=== PATIENT | female | born 1990 | race Caucasian/White ===

== ENCOUNTER 2019-04-27 22:08 | Outpatient (CLI) | payer OTHER ==
--- NOTE | 2019-04-28 00:28 | Ultrasound Report ---
Reason: TEST POSITIVE,ENCOUNTER FOR REMOVAL OF I Procedure Date: 04/27/2019 Accession Number: [id number] / [id number] Procedure: US - OB First Trimester CPT Code: FULL RESULT: EXAM: FIRST TRIMESTER OBSTETRIC ULTRASOUND (Less than 11 weeks) EXAM DATE: 04/27/2019 10:16 PM. CLINICAL HISTORY: TEST POSITIVE,ENCOUNTER FOR REMOVAL OF IUD. LMP: 03/17/2019. COMPARISONS: None. TECHNIQUE: Transabdominal and transvaginal ultrasound examination with static image documentation. CLINICAL DATES: EGA 5 weeks 6 days with DANTE 12/22/2019 based on LMP. ASSESSMENT: Gestational Sac: Irregular collection at the fundal endometrium. Mean gestational sac diameter: 18.4 mm = 6 weeks 5 days. Embryo: Not seen. Cardiac activity: Not seen. Yolk sac: Possible irregular yolk sac measuring 5.6 mm. Amniotic fluid: Not accurately assessed at this gestational age. Early placenta: Not visible at this gestational age. Other: No perigestational fluid collection demonstrated. MATERNAL STRUCTURES: Uterus: Anteverted/Retroverted. Unremarkable. Cervix: Closed. Right Ovary/Adnexa: The ovary measures 2.1 x 2.4 x 1.7 cm, volume 4.5 cc. Paraovarian cyst measuring 1.2 x 1.3 x 1.2 cm. Left Ovary/Adnexa: The ovary measures 4.3 x 3.3 x 3.5 cm, volume 25.7 cc. Cyst measuring 2.7 x 3.2 x 3.3 cm. Free Fluid: Small to moderate amount. Other: None. IMPRESSION: 1. Irregular fluid collection at the uterine fundus measuring 18.4 mm mean diameter. If this represents a gestational sac, the size corresponds with 6 weeks 5 days gestation. 2. Within this collection is a possible irregular yolk sac measuring 5.6 mm. No embryo or cardiac activity seen. 3. Findings could represent early intrauterine gestation, incomplete , or occult ectopic. Recommend correlation with quantitative serum beta-hCG level and sonographic follow-up. 4. Prominent left ovary measuring 26 cc with cyst measuring 3 cm. 5. Small to moderate amount of free fluid. RADIA
== END 2019-04-27 22:09 | disposition home or self-care (01) ==
LOC: DI 22:08
PROVIDERS: ATTEND Nurse Practitioner Obstetrics & Gynecology
DX: Z32.01 Encounter for pregnancy test, result positive (principal); Z30.432 Encounter for removal of intrauterine contraceptive device
CPT/HCPCS: 76801; 76817

== ENCOUNTER 2019-05-03 19:09 | Outpatient (CLI) | payer OTHER ==
--- NOTE | 2019-05-04 14:30 | Ultrasound Report ---
Reason: TEST POSITIVE,ENCOUNTER FOR REMOVAL OF I Procedure Date: 05/03/2019 Accession Number: [id number] / [id number] Procedure: US - OB First Trimester CPT Code: FULL RESULT: EXAM: FIRST TRIMESTER OBSTETRIC ULTRASOUND (Less than 11 weeks) EXAM DATE: 05/03/2019 07:23 PM. CLINICAL HISTORY: Positive test, encounter for removal of intrauterine device. LMP: 03/17/2019. COMPARISONS: OB FIRST TRIMESTER 04/27/2019 10:16 PM. TECHNIQUE: Transabdominal and transvaginal ultrasound examination with static image documentation. CLINICAL DATES: EGA 6 weeks 5 days with DANTE 12/22/2019 based on LMP. ASSESSMENT: Gestational Sac: Single intrauterine. Mean gestational sac diameter: 8 mm = 5 weeks 4 days. Embryo: Not seen. Cardiac activity: Not seen. Yolk sac: 2 mm. Amniotic fluid: Not accurately assessed at this gestational age. Early placenta: Not visible at this gestational age. Other: There is a complex heterogeneously contoured fluid collection within the endometrium, 3.4 x 1.6 x 3.5 cm. MATERNAL STRUCTURES: Uterus: Retroverted. Unremarkable. Cervix: Closed. Right Ovary/Adnexa: The ovary measures 2.4 x 1.6 x 1.7 cm, volume 3.3 cc. A paraovarian cyst measures 1.0 x 1.1 x 1.4 cm on today's exam.. Left Ovary/Adnexa: The ovary measures 4.7 x 3.9 x 4.2 cm, volume 41 cc. A cyst measuring 3.4 x 3.9 x 3.5 cm is noted. Free Fluid: Redemonstration of small to moderate quantity of free fluid. Other: None. IMPRESSION: 1. Absence of embryo greater than 6 weeks after last menstrual period is suspicious for but not diagnostic of failure. The early intrauterine gestational sac with size corresponding to a gestational age of 5 weeks 4 days is identified. Recommend follow-up ultrasound in 7-10 days to assess viability. 2. Persistent heterogeneous perigestational fluid collection as described. 3. Persistent small to moderate free fluid in the pelvis. 4. Adnexal cystic structures as noted. RADIA
== END 2019-05-03 19:10 | disposition home or self-care (01) ==
LOC: DI 19:09
PROVIDERS: ATTEND Nurse Practitioner Obstetrics & Gynecology
DX: Z32.01 Encounter for pregnancy test, result positive (principal); Z30.432 Encounter for removal of intrauterine contraceptive device
CPT/HCPCS: 76801; 76817

== ENCOUNTER 2019-05-05 11:09 | Outpatient (CLI) | payer OTHER | END 2019-05-05 11:10 | disposition home or self-care (01) | LOC: LAB 11:09 | PROVIDERS: ATTEND Nurse Practitioner Obstetrics & Gynecology | DX: O20.0 Threatened abortion (principal); Z32.01 Encounter for pregnancy test, result positive | CPT/HCPCS: 36415; 84702 ==

== ENCOUNTER 2019-05-07 15:16 | Outpatient (CLI) | payer OTHER | END 2019-05-07 15:17 | disposition home or self-care (01) | LOC: LAB 15:16 | PROVIDERS: ATTEND Nurse Practitioner Obstetrics & Gynecology | DX: O20.0 Threatened abortion (principal); Z32.01 Encounter for pregnancy test, result positive | CPT/HCPCS: 36415; 84702 ==

== ENCOUNTER 2019-05-12 21:27 | Outpatient (CLI) | payer OTHER ==
--- NOTE | 2019-05-13 11:45 | Ultrasound Report ---
Reason: THREATENED Procedure Date: 05/12/2019 Accession Number: [id number] / [id number] Procedure: US - OB First Trimester CPT Code: FULL RESULT: EXAM: FIRST TRIMESTER OBSTETRIC ULTRASOUND (Less than 11 weeks) EXAM DATE: 05/12/2019 10:45 PM. CLINICAL HISTORY: Threatened . LMP: 03/17/2019. COMPARISONS: OB FIRST TRIMESTER 05/03/2019 7:23 PM. TECHNIQUE: Transabdominal and transvaginal ultrasound examination with static image documentation. CLINICAL DATES: EGA 8 weeks 0 days with DANTE 12/22/2019 based on LMP. ASSESSMENT: Gestational Sac: Single intrauterine. Embryo: CRL (crown-rump length) 6.7 mm = 6 weeks 4 days with an DANTE of 01/01/2020. Cardiac activity: 125 beats per minute. Yolk sac: 2.5 mm. Amniotic fluid: Not accurately assessed at this gestational age. Early placenta: Not visible at this gestational age. Other: Large perigestational hemorrhage measuring 2.2 x 1.2 x 3.8 cm. Previously measuring 3.4 x 1.6 x 3.5 cm. MATERNAL STRUCTURES: Uterus: Anteverted. Unremarkable. Cervix: Closed. Right Ovary/Adnexa: The ovary measures 3.3 x 1.4 x 1.6 cm, volume 3.9 cc. Hypoechoic 1.1 x 1.6 x 1 cm cystic structure adjacent to the right ovary. No wall irregularities, mural nodules or thickened septations.. Left Ovary/Adnexa: The ovary measures 5.2 x 4.1 x 4.2 cm, volume 46.8 cc. Anechoic left ovarian 3.4 x 3.5 x 3.6 cm cyst. No wall irregularities, mural nodules or thickened septations. Free Fluid: Small volume. Other: None. IMPRESSION: 1. Single viable intrauterine at EGA 6 weeks 4 days with DANTE 01/01/2020 based on crown-rump length, which is discordant with clinical dates. 2. Assigned dating is DANTE 01/01/2020 based on current ultrasound. 3. Large perigestational hemorrhage currently measures 2.2 x 1.2 x 3.8 cm compared with the previous 3.4 x 1.6 x 3.5 cm. 4. Large anechoic simple 3.6 cm left ovarian cyst. 1.6 cm right paraovarian cyst without concerning features. Otherwise, both ovaries and adnexa are normal. 5. Small volume free fluid noted. RADIA
== END 2019-05-12 21:28 | disposition home or self-care (01) ==
LOC: DI 21:27
PROVIDERS: ATTEND Nurse Practitioner Obstetrics & Gynecology
DX: O20.0 Threatened abortion (principal); O34.81 Maternal care for other abnormalities of pelvic organs, first trimester; N83.201 Unspecified ovarian cyst, right side; N83.292 Other ovarian cyst, left side; Z3A.01 Less than 8 weeks gestation of pregnancy
CPT/HCPCS: 76801; 76817

== ENCOUNTER 2019-06-03 12:06 | Outpatient (CLI) | payer OTHER ==
[2019-06-03 12:42] LABS: BASOPHILS % (AUTO) 0.4 %; EOSINOPHILS # (AUTO) 0.2 10^3/uL (0.0-0.7); EOSINOPHILS % (AUTO) 1.9 %; HGB - HEMOGLOBIN 11.2 g/dL (12.0-16.0); LYMPHOCYTES # (AUTO) 1.9 10^3/uL (1.5-3.5); LYMPHOCYTES % (AUTO) 22.7 %; MEAN CORPUSCULAR HEMOGLOBIN 31.7 pg (27.0-31.0); MEAN CORPUSCULAR HGB CONC 34.9 g/dL (32.0-36.0); MEAN CORPUSCULAR VOLUME 90.9 fL (81.0-99.0); MONOCYTES # (AUTO) 0.5 10^3/uL (0.0-1.0); NEUTROPHILS # (AUTO) 5.8 10^3/uL (1.5-6.6); NEUTROPHILS % (AUTO) 68.6 %; PLT - PLATELET COUNT 242 10^3/uL (130-450); RED BLOOD COUNT 3.53 10^6/uL (4.20-5.40); RED CELL DISTRIBUTION WIDTH 12.7 % (12.0-15.0); WHITE BLOOD COUNT 8.5 x10^3/uL (4.8-10.8)
[2019-06-04 14:11] LABS: HEPATITIS B SURFACE ANTIGEN NON-REACTIVE (NON-REACTIVE)
[2019-06-04 15:22] LABS: HEPATITIS C ANTIBODY NON-REACTIVE (NON-REACTIVE)
[2019-06-06 14:52] LABS: HIV AG/AB 4TH GEN NON-REACTIVE (NON-REACTIVE)
== END 2019-06-03 12:07 | disposition home or self-care (01) ==
LOC: LAB 12:06
PROVIDERS: ATTEND Nurse Practitioner Obstetrics & Gynecology
DX: Z36.89 Encounter for other specified antenatal screening (principal)
CPT/HCPCS: 36415; 81599; 85025; 86592; 86762; 86803; 86850; 86900; 86901; 87340; 87389

== ENCOUNTER 2019-06-03 12:09 | Outpatient (CLI) | payer OTHER ==
[2019-06-03 14:39] LABS: MUDS CUTOFF CONCENTRATIONS CUTOFF CONC BELOW:
[2019-06-03 14:46] LABS: BILIRUBIN,URINE NEGATIVE (NEGATIVE); GLUCOSE, URINE (UA) NEGATIVE (NEGATIVE); KETONES,URINE (UA) NEGATIVE (NEGATIVE); LEUKOCYTE ESTERASE, URINE TRACE (NEGATIVE); NITRITE,URINE NEGATIVE (NEGATIVE); OCCULT BLOOD,URINE NEGATIVE (NEGATIVE); PROTEIN,URINE NEGATIVE (NEGATIVE); UROBILINOGEN,URINE 0.2 (NORMAL) E.U./dL (NORMAL)
[2019-06-03 15:03] LABS: AMPHETAMINE SCREEN,URINE NEGATIVE (NEGATIVE); BENZODIAZEPINES SCREEN, URINE NEGATIVE (NEGATIVE); COCAINE SCREEN URINE NEGATIVE (NEGATIVE); METHADONE SCREEN, URINE NEGATIVE (NEGATIVE); METHAMPHETAMINES SCREEN, URINE NEGATIVE (NEGATIVE); OPIATE SCREEN, URINE NEGATIVE (NEGATIVE); OXYCODONE SCREEN, URINE NEGATIVE (NEGATIVE); PROPOXYPHENE SCREEN, URINE NEGATIVE (NEGATIVE); TRICYCLIC ANTIDEPRESSANT,URINE NEGATIVE (NEGATIVE)
[2019-06-03 15:08] LABS: CLARITY,URINE CLEAR (CLEAR); RBC,URINE 0-5 /HPF (0-5); WBC CLUMPS,URINE PRESENT
[2019-06-03 15:09] LABS: BACTERIA,URINE Many /HPF (None Seen); SQUAMOUS EPITHELIAL CELL,UR MOD Squamous (<= Few)
[2019-06-03 19:04] LABS: TRICHOMONAS VAGINALIS DNA NEGATIVE (NEGATIVE)
== END 2019-06-03 12:10 | disposition home or self-care (01) ==
LOC: LAB.R 12:09
PROVIDERS: ATTEND Nurse Practitioner Obstetrics & Gynecology
DX: Z36.89 Encounter for other specified antenatal screening (principal); Z11.3 Encounter for screening for infections with a predominantly sexual mode of transmission
CPT/HCPCS: 80306; 81001; 87086; 87491; 87591; 87661

== ENCOUNTER 2019-07-04 12:06 | Outpatient (CLI) | payer OTHER | END 2019-07-04 23:59 | disposition home or self-care (01) | LOC: LAB.R 12:06 | PROVIDERS: ATTEND Obstetrics & Gynecology | DX: R30.9 Painful micturition, unspecified (principal) | CPT/HCPCS: 87086 ==

== ENCOUNTER 2019-08-15 10:22 | Outpatient (CLI) | payer OTHER ==
--- NOTE | 2019-08-15 17:19 | Ultrasound Report ---
Reason: ENCOUNTER FOR OTHER SCREENING Procedure Date: 08/15/2019 Accession Number: [id number] / [id number] Procedure: US - OB Detailed Eval CPT Code: FULL RESULT: EXAM: COMPLETE OBSTETRICAL ULTRASOUND EXAM DATE: 08/15/2019 12:15 PM. CLINICAL HISTORY: anatomic survey. COMPARISON: 05/12/2019. TECHNIQUE: Real-time sonographic evaluation of the fetus performed by the compliance examiner. Multiple inbound call center representative static images were saved for review. DATING: Established EGA 20 weeks 1 day with DANTE 01/01/2020 based on ultrasound of 05/12/2019. EGA 20 weeks 2 days with DANTE 12/31/2019 based on the current ultrasound. GENERAL EVALUATION [place] . Cardiac activity: 144 bpm. movement: Present Presentation: Breech Placenta: Posterior right position. No evidence for previa. Umbilical cord: 3 vessel cord. Central placental cord origin. Amniotic fluid: Subjectively normal. MVP 3.8 cm. BIOMETRY Bi-Parietal Diameter (BPD): 4.7 cm, 20 weeks 2 days Head Circumference (HC): 17.6 cm, 20 weeks 0 days Abdominal Circumference (AC): 14.8 cm, 20 weeks 0 days Femur Length (FL): 3.4 cm, 20 weeks 4 days Estimated Weight: 343 g, 52nd percentile for 20 weeks 1 day. ANATOMY The intracranial structures, profile, face/nose/lips, spine, 4 chamber heart and outflow tracts, stomach, abdominal wall and cord insertion, diaphragm, kidneys, bladder, and extremities were visualized and demonstrate no abnormality. There is a 1.4 x 1 cm right choroid plexus cyst and a 1.1 x 0.9 cm left choroid plexus cyst. These are commonly an incidental finding which resolves. MATERNAL STRUCTURES Uterus: Unremarkable. Cervix: Long and closed. Transabdominal length 5.7 cm. Right ovary/adnexa: Unremarkable. Left ovary/adnexa: Unremarkable. Free fluid: None. IMPRESSION: 1. Donnelly intrauterine with gestational age 20 weeks 1 day based on ultrasound of 05/12/2019. 2. Estimated weight is within expected limits for assigned dating. 3. Bilateral choroid plexus cysts. Otherwise normal anatomic survey. No anatomic abnormalities are detected at this time. RADIA
== END 2019-08-15 10:23 | disposition home or self-care (01) ==
LOC: DI 10:22
PROVIDERS: ATTEND Obstetrics & Gynecology
DX: Z36.89 Encounter for other specified antenatal screening (principal)
CPT/HCPCS: 76811

== ENCOUNTER 2019-10-03 12:10 | Outpatient (CLI) | payer OTHER ==
[2019-10-03 18:31] LABS: HGB - HEMOGLOBIN 9.6 g/dL (12.0-16.0); MEAN CORPUSCULAR HEMOGLOBIN 29.2 pg (27.0-31.0); MEAN CORPUSCULAR HGB CONC 30.8 g/dL (32.0-36.0); MEAN CORPUSCULAR VOLUME 94.8 fL (81.0-99.0); MEAN PLATELET VOLUME 10.2 fL (7.9-10.8); RED BLOOD COUNT 3.29 10^6/uL (4.20-5.40); RED CELL DISTRIBUTION WIDTH 13.5 % (12.0-15.0)
== END 2019-10-03 23:59 | disposition home or self-care (01) ==
LOC: LAB.WCP 12:10
PROVIDERS: ATTEND Nurse Practitioner Obstetrics & Gynecology
DX: Z36.89 Encounter for other specified antenatal screening (principal)
CPT/HCPCS: 36415; 82950; 85027; 86850

== ENCOUNTER 2019-10-05 10:15 | Outpatient (CLI) | payer OTHER | END 2019-10-05 10:16 | disposition home or self-care (01) | LOC: LAB 10:15 | PROVIDERS: ATTEND Nurse Practitioner Obstetrics & Gynecology | DX: O99.810 Abnormal glucose complicating pregnancy (principal); Z3A.00 Weeks of gestation of pregnancy not specified | CPT/HCPCS: 36415; 82951; 82952 ==

== ENCOUNTER 2019-12-04 12:24 | Outpatient (CLI) | payer OTHER ==
[2019-12-04 12:39] LABS: HGB - HEMOGLOBIN 10.8 g/dL (12.0-16.0); MEAN CORPUSCULAR HEMOGLOBIN 31.4 pg (27.0-31.0); MEAN CORPUSCULAR HGB CONC 33.2 g/dL (32.0-36.0); MEAN CORPUSCULAR VOLUME 94.5 fL (81.0-99.0); MEAN PLATELET VOLUME 9.9 fL (7.9-10.8); RED BLOOD COUNT 3.44 10^6/uL (4.20-5.40); RED CELL DISTRIBUTION WIDTH 14.7 % (12.0-15.0); WHITE BLOOD COUNT 8.5 x10^3/uL (4.8-10.8)
== END 2019-12-04 12:25 | disposition home or self-care (01) ==
LOC: LAB 12:24
PROVIDERS: ATTEND Nurse Practitioner Obstetrics & Gynecology
DX: O99.019 Anemia complicating pregnancy, unspecified trimester (principal); Z3A.00 Weeks of gestation of pregnancy not specified
CPT/HCPCS: 36415; 85027

== ENCOUNTER 2019-12-30 20:12 | Inpatient (IN) | payer OTHER ==
--- NOTE | 2019-12-30 21:11 | HISTORY & PHYSICAL EXAMINATION ---
Admit History - Visit Reason Visit Reason: Contractions (29yo at 39 5/7 weeks by first trimester US not c/w LMP presents with c/o contractions q3 starting this evening. No leaking of fluid, +bloody show. Normal activity. No n/v/f/c or dysuria. occurred w IUD in place; removed ~5-6 weeks Choroid plexus cysts seen; pt declined further eval.) - : 4 Parity: 2 Premature: 0 Ectopic: 0 : 1 Care: positive: [facility] Risk/History: positive: Other (Anemia) Complications This : positive: Other (Anemia) Smoking Status: Never smoker - Mother's Labs Mother's Blood Type: positive: B Mother's RH: positive: Negative GBS: positive: Group B Step Negative Rubella Status: positive: Immune - Other Maternal History Other Maternal History: HIV/HepB/RPR neg GC/chlam neg GBS neg 3/2 Rhogam 10/11/19 Glucola 154 Nml 3h GTT (150/127/104) Tdap 10/11/19 Flu vax 08/01/19 Meds/Allgy - Home Medications Home Medications: Ambulatory Orders Medication Instructions Recorded Confirmed Ferrous Gluconate [Iron] 1 tab TID 12/30/19 12/30/19 Pnv No.95/Ferrous Fum/Folic AC 1 tab DAILY 12/30/19 12/30/19 [ Caplet] Review of Systems - Constitutional Constitutional: denies: Fatigue, Fever - Eyes Eyes: denies: Blurred vision - Cardiovascular Cariovascular: denies: Palpitations, Chest pain - Respiratory Respiratory: denies: Cough, SOB at rest - Gastrointestinal Gastrointestinal: denies: Abdominal pain, Change in bowel habits, Nausea, Vomiting - Genitourinary Genitourinary: denies: Dysuria - Hematologic/Lymphatic Hematologic/Lymphatic: reports: Anemia (See above) Physical - Abdominal Exam Contraction Frequency (min/apart): q3-4 Contraction Intensity: positive: Moderate to strong Uterine Resting Tone: positive: Soft - Monitoring Strip Review: positive: Category I - Presentation Presentation: positive: Vertex (by bedside scan) - Vaginal Exam Membranes: positive: Membranes intact Dilation (in cm): 4cm per RN Station: positive: -2 - Speculum Exam Speculum Exam Performed: positive: No Plan for Labor - Plan For Labor I expect patient to be DC'd or transferred within 96 hours.: Yes Plan for Labor: 29yo at 39 5/7 weeks GBS neg B- by first trimester US not c/w LMP admitted in early labor. Notes anemia; check CBC. Rhogam given; check T&S Planning unmedicated labor H/O fast labor w/o complications EFW 3200gm Expect Considering PPTL Exam - Exam General: Alert, Oriented x3, Other (Breathing with contractions) Lungs: Clear to auscultation Cardiovascular: Regular rate (3/6 systolic murmur along LSB) Abdomen: Soft, No tenderness, No masses (Gravid, S=D) Extremities: No edema Neurological: Normal gait Psych/Mental Status: Mental status NL
[2019-12-30] MEDS ORDERED: OXYTOCIN/SODIUM CHLORIDE 500 ML IV PRN (21:29)
[2019-12-30] MEDS ORDERED: SODIUM CHLORIDE FLUSH 0.9% 10 ML SYRINGE IVP PRN (21:29)
[2019-12-30] MEDS ORDERED: ONDANSETRON 4 MG/2 ML VIAL IVP PRN (21:29)
[2019-12-30] MEDS ORDERED: fentaNYL 100 MCG/2 ML VIAL IVP PRN (21:29)
[2019-12-30] MEDS ORDERED: LACTATED RINGERS 1,000 ML IV SCH (22:00)
--- NOTE | 2019-12-30 22:33 | PROVIDER PROGRESS NOTE ---
Subjective - Prog Note Date Prog Note Date: 12/30/19 Prog Note Time: 22:31 - Subjective Subjective: Feeling more pressure with contractions VSS afeb Category 1 tracing VE 8cm/90/-1 with bulging membranes. A/P Rapid progress. Expect Objective - Vital Signs/Intake & Output Vital Signs: Vital Signs x48h Temp Pulse Resp BP 12/30/19 20:41 98.6 F 74 18 99/47 L
[2019-12-30] MEDS ORDERED: OXYTOCIN 10 UNIT/ML VIAL ONE (22:38)
[2019-12-30] MEDS ORDERED: LIDOCAINE-MPF 1% 30 ML VIAL ONE (22:39)
[2019-12-30 22:44] LABS: BASOPHILS % (AUTO) 0.2 %; EOSINOPHILS % (AUTO) 0.3 %; LYMPHOCYTES # (AUTO) 1.4 10^3/uL (1.5-3.5); LYMPHOCYTES % (AUTO) 10.2 %; MEAN CORPUSCULAR HEMOGLOBIN 31.4 pg (27.0-31.0); MEAN CORPUSCULAR HGB CONC 33.3 g/dL (32.0-36.0); MEAN CORPUSCULAR VOLUME 94.3 fL (81.0-99.0); MEAN PLATELET VOLUME 10.1 fL (7.9-10.8); MONOCYTES # (AUTO) 0.8 10^3/uL (0.0-1.0); MONOCYTES % (AUTO) 5.7 %; NEUTROPHILS # (AUTO) 11.3 10^3/uL (1.5-6.6); NEUTROPHILS % (AUTO) 83.1 %; PLT - PLATELET COUNT 233 10^3/uL (130-450); RED CELL DISTRIBUTION WIDTH 14.7 % (12.0-15.0); WHITE BLOOD COUNT 13.6 x10^3/uL (4.8-10.8)
--- NOTE | 2019-12-30 23:06 | PROVIDER PROGRESS NOTE ---
Subjective - Prog Note Date Prog Note Date: 12/30/19 Prog Note Time: 23:04 - Subjective Subjective: Declines pain meds. Very uncomfortable w contractions VSS afeb Category 1 Rim/100/0 w bulging membranes. A/P Doing well. Expect Objective - Vital Signs/Intake & Output Vital Signs: Vital Signs x48h Temp Pulse Resp BP 12/30/19 20:41 98.6 F 74 18 99/47 L - Lab Results Fish Bones: 12/30/19 22:36 Other Labs: Lab Results x24hrs 12/30/19 Range/Units 22:36 WBC 13.6 H (4.8-10.8) x10^3/uL RBC 3.50 L (4.20-5.40) 10^6/uL Hgb 11.0 L (12.0-16.0) g/dL Hct 33.0 L (37.0-47.0) % MCV 94.3 (81.0-99.0) fL MCH 31.4 H (27.0-31.0) pg MCHC 33.3 (32.0-36.0) g/dL RDW 14.7 (12.0-15.0) % Plt Count 233 (130-450) 10^3/uL MPV 10.1 (7.9-10.8) fL Neut # (Auto) 11.3 H (1.5-6.6) 10^3/uL Lymph # (Auto) 1.4 L (1.5-3.5) 10^3/uL [place] # (Auto) 0.8 (0.0-1.0) 10^3/uL Eos # (Auto) 0.0 (0.0-0.7) 10^3/uL Baso # (Auto) 0.0 (0.0-0.1) 10^3/uL Absolute Nucleated RBC 0.00 x10^3/uL Nucleated RBC % 0.0 /100WBC
--- NOTE | 2019-12-30 23:34 | PROVIDER PROGRESS NOTE ---
Subjective - Prog Note Date Prog Note Date: 12/30/19 Prog Note Time: 23:33 - Subjective Subjective: AROM; moderate meconium FH 150-160's/moderate variability/no decels VE 8cm after AROM/100/0 Will call peds to delivery Objective - Vital Signs/Intake & Output Vital Signs: Vital Signs x48h Temp Pulse Resp BP 12/30/19 20:41 98.6 F 74 18 99/47 L - Lab Results Fish Bones: 12/30/19 22:36 Other Labs: Lab Results x24hrs 12/30/19 12/30/19 Range/Units 22:36 22:36 WBC 13.6 H (4.8-10.8) x10^3/uL RBC 3.50 L (4.20-5.40) 10^6/uL Hgb 11.0 L (12.0-16.0) g/dL Hct 33.0 L (37.0-47.0) % MCV 94.3 (81.0-99.0) fL MCH 31.4 H (27.0-31.0) pg MCHC 33.3 (32.0-36.0) g/dL RDW 14.7 (12.0-15.0) % Plt Count 233 (130-450) 10^3/uL MPV 10.1 (7.9-10.8) fL Neut # (Auto) 11.3 H (1.5-6.6) 10^3/uL Lymph # (Auto) 1.4 L (1.5-3.5) 10^3/uL [place] # (Auto) 0.8 (0.0-1.0) 10^3/uL Eos # (Auto) 0.0 (0.0-0.7) 10^3/uL Baso # (Auto) 0.0 (0.0-0.1) 10^3/uL Absolute Nucleated RBC 0.00 x10^3/uL Nucleated RBC % 0.0 /100WBC Blood Type B NEGATIVE Antibody Screen NEGATIVE
[2019-12-31] MEDS ORDERED: miSOPROStoL 200 MCG TABLET ONE (00:06)
[2019-12-31] MEDS ORDERED: miSOPROStoL 200 MCG TABLET PO ONE (00:10)
--- NOTE | 2019-12-31 00:17 | DELIVERY NOTE ---
Delivery Note - Labor Labor: positive: Spontaneous - Delivery Method Delivery Method: positive: Spontaneous vaginal delivery - Presentation Presentation: positive: Vertex, JULIO CÉSAR - left occiput anterior - Nuchal Cord Nuchal Cord: positive: Reduced - Anesthetic Anesthetic Type: - Amniotic Fluid Description Amniotic Fluid Description: positive: Moderate meconium - Episiotomy Type Episiotomy Type: positive: None - Laceration Laceration: positive: None - Ivins: positive: Placed in direct skin contact with mother, Bulb syringe, Stimulated, Warmed, [place] used sex: positive: Male - Cord Cord: positive: 3 vessels - Placenta Placenta: positive: Intact, Meconium stained - Estimated Blood Loss Estimated Blood Loss (in cc): 350 (Oxytocin and miso given) - Post Delivery Events Post Delivery Events: positive: No post delivery events - Delivery Comments (Free Text/Narrative) Delivery Comments (Free Text/Narrative): of 3813gm male infant apgars 8/9 at 23:57 on 12/29. JULIO CÉSAR, loose nuchal cord x1 reduced. Placenta delivered intact with traction. Markedly long, normally inserted 3VC. Normal disc. Membranes meconium stained. Spontaneous, vigorous cry. Cervix, vagina, perineum, rectum intact. Uterine atony treated with oxytocin and miso (400mcg PO + 600 AL) EBL 350cc
[2019-12-31] MEDS ORDERED: ACETAMINOPHEN 325 MG TABLET PO PRN (00:21)
[2019-12-31] MEDS ORDERED: MAGNESIUM HYDROXIDE 2,400 MG/30 ML UDC PO PRN (00:21)
[2019-12-31] MEDS ORDERED: diphenhydrAMINE 25 MG CAPSULE PO PRN (00:21)
[2019-12-31] MEDS ORDERED: ZOLPIDEM 5 MG TABLET PO PRN (00:21)
--- NOTE | 2019-12-31 00:29 | DISCHARGE SUMMARY ---
"Discharge Summary Admit Date: 12/30/19 Discharging Provider: Mai Vargas MD Code Status: Attempt Resuscitation Condition at Discharge: Good Discharge Disposition: 01 Home, Self Care - DIAGNOSES Admission Diagnoses: at 39 5/7 weeks in early labor - HPI History of Present Illness: 29yo now 2 at 39 5/7 weeks by first trimester US not c/w LMP presented with c/o contractions q3 starting the evening of admission. No leaking of fluid, +bloody show. Normal activity. No n/v/f/c or dysuria. occurred w IUD in place; removed ~5-6 weeks Choroid plexus cysts seen; pt declined further eval. - CONSULTS | PROCEDURES Procedures: - HOSPITAL COURSE Hospital Course: Patient was expectantly managed. A CBC and T&S were done. She progressed to 9cm when AROM was done; moderate meconium was noted and peds was called. She rapidly progressed and was delivered of a 3813gm male infant apgars 8/9 on 12/29. Meconium staining of membranes was noted as well as a markedly long, normally inserted 3VC. The uterus was boggy and so misoprostol was added to the pitocin with good result. EBL 350cc. There were no lacerations. Pt was noted to develop a transient fever in response to the miso which was treated with tylenol and resolved over a few hours. She remained stable and afebrile after that. well. Planning vasectomy for contraception; considering d provera until it is done. Plan f/u in 2 weeks. - ALLERGIES Allergies/Adverse Reactions: Allergies Allergy/AdvReac Type Severity Reaction Status Date / Time ciprofloxacin Allergy Unknown Verified 12/31/19 01:32 - MEDICATIONS Home Medications: Ambulatory Orders Medication Instructions Recorded Confirmed Ferrous Gluconate [Iron] 1 tab TID 12/30/19 12/30/19 Pnv No.95/Ferrous Fum/Folic AC 1 tab DAILY 12/30/19 12/30/19 [ Caplet] - PHYSICAL EXAM AT DISCHARGE General Appearance: positive: No acute distress, Alert Respiratory: positive: No respiratory distress Abdomen: positive: Non-tender, No distention, Other (Fundus firm below umbilicus) - LABS Result Diagrams: 12/30/19 22:36"
[2019-12-31] MEDS ORDERED: SODIUM CHLORIDE FLUSH 0.9% 10 ML SYRINGE IVP SCH (01:00)
[2019-12-31] MEDS ORDERED: LACTATED RINGERS 1,000 ML IV SCH (01:00)
[2019-12-31] MEDS ORDERED: ACETAMINOPHEN 500 MG TABLET PO PRN (01:23)
[2019-12-31] MEDS ORDERED: miSOPROStoL 200 MCG TABLET PR ONE (04:20)
[2019-12-31] MEDS: IBUPROFEN 600 MG TABLET PO SCH ×4 (05:35→18:17)
[2019-12-31] MEDS ORDERED: miSOPROStoL 100 MCG TABLET PO SCH (09:00)
--- NOTE | 2019-12-31 13:51 | PROVIDER PROGRESS NOTE ---
Subjective - Prog Note Date Prog Note Date: 12/31/19 Prog Note Time: 13:49 - Subjective Subjective: PPD 1 Feeling very well. No pain, minimal lochia. Ambulating, tolerating reg diet. Breasfeeding going well. Transient fever secondary to miso resolved over a few hours. VSS afeb Abdomen soft, non-tender. Fundus firm below umbilicus Scant lochia A/P Stable Continue routine care. Expect DC home tomorrow. Objective - Vital Signs/Intake & Output Vital Signs: Vital Signs x48h Temp Pulse Resp BP Pulse Ox 12/31/19 12:54 97.0 F L 67 16 99/62 98 12/31/19 07:48 98.4 F 78 16 107/54 L 12/31/19 07:00 99.3 F Intake & Output: Intake & Output 12/28/19 12/29/19 12/30/19 12/31/19 23:59 23:59 23:59 23:59 Intake Total 2400 Output Total 200 Balance 2200 - Lab Results Fish Bones: 12/30/19 22:36 Other Labs: Lab Results x24hrs 12/30/19 12/30/19 Range/Units 22:36 22:36 WBC 13.6 H (4.8-10.8) x10^3/uL RBC 3.50 L (4.20-5.40) 10^6/uL Hgb 11.0 L (12.0-16.0) g/dL Hct 33.0 L (37.0-47.0) % MCV 94.3 (81.0-99.0) fL MCH 31.4 H (27.0-31.0) pg MCHC 33.3 (32.0-36.0) g/dL RDW 14.7 (12.0-15.0) % Plt Count 233 (130-450) 10^3/uL MPV 10.1 (7.9-10.8) fL Neut # (Auto) 11.3 H (1.5-6.6) 10^3/uL Lymph # (Auto) 1.4 L (1.5-3.5) 10^3/uL [place] # (Auto) 0.8 (0.0-1.0) 10^3/uL Eos # (Auto) 0.0 (0.0-0.7) 10^3/uL Baso # (Auto) 0.0 (0.0-0.1) 10^3/uL Absolute Nucleated RBC 0.00 x10^3/uL Nucleated RBC % 0.0 /100WBC Blood Type B NEGATIVE Antibody Screen NEGATIVE
[2019-12-31] MEDS ORDERED: MEASLES,MUMPS & RUBELLA VACC 0.5 ML VIAL SUBQ ONE (21:35)
[2020-01-01 09:08] VITALS: BP 106/60
--- NOTE | 2020-01-01 11:36 | PROVIDER PROGRESS NOTE ---
Subjective - Prog Note Date Prog Note Date: 01/01/20 Prog Note Time: 11:34 - Subjective Subjective: PPD 2 Feeling very well. Ambulating, voiding, reg diet. Minimal lochia. going well. VSS afeb Abd soft, non-tender. Fundus firm below umbilicus A/P Stable DC home today. Considering D provera until has vasectomy. Plan f/u in 2 weeks Objective - Vital Signs/Intake & Output Vital Signs: Vital Signs x48h Temp Pulse Resp BP Pulse Ox 01/01/20 09:07 97.9 F 65 19 106/60 100 Intake & Output: Intake & Output 12/29/19 12/30/19 12/31/19 01/01/20 23:59 23:59 23:59 23:59 Intake Total 3380 250 Output Total 200 Balance 3180 250 - Lab Results Fish Bones: 12/30/19 22:36 Other Labs: Lab Results x24hrs 12/31/19 Range/Units 15:15 Weak D (Du) WEAK-D NEGATIVE
--- NOTE | 2020-01-01 11:41 | Discharge Plan ---
Discharge Plan Problem Reviewed?: Yes Disposition: Home, Self Care Condition: Good Diet: Regular Activity Restrictions: Pelvic rest Shower Restrictions: No No Smoking: If you smoke, Please STOP! Call for help. Follow-up with: Sruthi Cornejo PA [Primary Care Provider] -
--- NOTE | 2020-01-01 13:07 | Labor Flowsheet ---
Labor Flowsheet Datetime Report Generated by CPN: 01/01/2020 13:06 Datetime: 01/01/2020 08:58 VITAL SIGNS NBP Sys/[place]/Mean (mmHg): 106 : 60 : 70 Pulse: 63 Datetime: 12/31/2019 05:55 Stage of : Recovery Datetime: 12/31/2019 01:30 COMMUNICATION LaborFlag: Labor Datetime: 12/31/2019 00:58 Membranes Ruptured Date/Time: 12/30/2019 23:29 Amniotic Fluid Odor: Normal Datetime: 12/30/2019 23:57 STAGE 2 Pushing: Urge to Push Pushing Position: Pushing with Contractions Pushing Progress: with Pushing Datetime: 12/30/2019 23:30 Membranes Rupture Method: Spontaneous Amniotic Fluid Color: Heavy Meconium Amniotic Fluid Amount: Moderate Datetime: 12/30/2019 23:29 VAGINAL EXAM Dilatation (cm): 10.0 Station: 2 Datetime: 12/30/2019 23:00 UTERINE ACTIVITY Pattern: Normal: <= 5 Contractions in 10 Minutes Datetime: 12/30/2019 22:31 Exam by: Dr. Erber Datetime: 12/30/2019 22:03 PATIENT CARE I/O Interventions: Up to BR
== END 2020-01-01 12:45 | disposition home or self-care (01) | DRG 806 ==
LOC: WFO 20:12 → FBP 20:14 → WFO 21:28 → FBP 21:29
PROVIDERS: ADMIT Obstetrics & Gynecology; ATTEND Obstetrics & Gynecology
PROC: 10907ZC Drainage of Amniotic Fluid, Therapeutic from Products of Conception, Via Natural or Artificial Opening (ICD-10-PCS; 2019-12-30)
PROC: 10E0XZZ Delivery of Products of Conception, External Approach (ICD-10-PCS; principal; 2019-12-31)
DX: O99.02 Anemia complicating childbirth (principal); O75.2 Pyrexia during labor, not elsewhere classified; Z37.0 Single live birth; D64.9 Anemia, unspecified; O69.81X0 Labor and delivery complicated by cord around neck, without compression, not applicable or unspecified; O77.0 Labor and delivery complicated by meconium in amniotic fluid; Z3A.39 39 weeks gestation of pregnancy
CPT/HCPCS: 36415; 83033; 85025; 86850; 86900; 86901; A9270; J7120; 99213

== ENCOUNTER 2021-04-30 15:51 | Emergency (ER) | payer OTHER ==
[2021-04-30 17:08] LABS: BASOPHILS # (AUTO) 0.1 10^3/uL (0.0-0.1); BASOPHILS % (AUTO) 0.9 %; EOSINOPHILS # (AUTO) 0.2 10^3/uL (0.0-0.7); EOSINOPHILS % (AUTO) 3.6 %; HGB - HEMOGLOBIN 13.2 g/dL (12.0-16.0); LYMPHOCYTES # (AUTO) 2.5 10^3/uL (1.5-3.5); MEAN CORPUSCULAR HEMOGLOBIN 31.3 pg (27.0-31.0); MEAN CORPUSCULAR HGB CONC 34.7 g/dL (32.0-36.0); MEAN PLATELET VOLUME 9.9 fL (7.9-10.8); MONOCYTES # (AUTO) 0.4 10^3/uL (0.0-1.0); MONOCYTES % (AUTO) 6.4 %; NEUTROPHILS # (AUTO) 3.2 10^3/uL (1.5-6.6); NEUTROPHILS % (AUTO) 49.9 %; PLT - PLATELET COUNT 268 10^3/uL (130-450); RED BLOOD COUNT 4.22 10^6/uL (4.20-5.40); RED CELL DISTRIBUTION WIDTH 12.6 % (12.0-15.0); WHITE BLOOD COUNT 6.4 x10^3/uL (4.8-10.8)
--- NOTE | 2021-04-30 17:20 | ED Physician Documentation ---
History of Present Illness - Stated complaint Stated Complaint: SOA/JEREMY FACE/FAINT - Chief complaint Chief Complaint: General - Additonal information Additional information: 30-year-old female presents to the emergency department for evaluation of near syncope. She reports that she was making lunch and feeding it to her children when she began to feel very lightheaded and faint and developed some tunnel vision. She did not pass out. She also reported that she had some perioral tingling of her lips. No history of similar. Doubt . Patient denies any pertinent past medical history and takes no prescribed medications other than routine prenatals. Review of Systems Constitutional: reports: Reviewed and negative Eyes: reports: Loss of vision (Tunnel vision) Ears: reports: Reviewed and negative Nose: reports: Reviewed and negative Throat: reports: Reviewed and negative Cardiac: reports: Palpitations. denies: Chest pain / pressure, Pedal edema, Calf pain Respiratory: denies: Dyspnea, Cough GI: reports: Nausea. denies: Abdominal Pain, Vomiting, Constipation, Diarrhea : denies: Dysuria, Frequency, Hesitancy Skin: reports: Reviewed and negative Musculoskeletal: reports: Reviewed and negative Neurologic: reports: Near syncope. 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: Ovarian cysts : None HEENT: None Psych: None Musculoskeletal: None Derm: None - Past Surgical History Past Surgical History: No - Present Medications Home Medications: Ambulatory Orders Medication Instructions Recorded Confirmed Ondansetron Odt [Zofran] 4 mg TL Q6H PRN #10 tablet 04/30/21 - Allergies Allergies/Adverse Reactions: Allergies Allergy/AdvReac Type Severity Reaction Status Date / Time ciprofloxacin Allergy Unknown Verified 04/30/21 15:55 - Social History Does the pt smoke?: No Smoking Status: Never smoker Does the pt drink ETOH?: No Does the pt have substance abuse?: No - Immunizations Immunizations are current?: Yes PD ED PE NORMAL - General General: Alert and oriented X 3, No acute distress - HEENT HEENT: Atraumatic, Ears normal, Moist mucous membranes, Pharynx benign - Neck Neck: Supple, no meningeal sign - Cardiac Cardiac: RRR, No murmur, No gallop, Strong equal pulses - Respiratory Respiratory: No respiratory distress, Clear bilaterally - Abdomen Abdomen: Normal bowel sounds, Soft, Non tender - Back Back: No CVA TTP, No spinal TTP - Derm Derm: Normal color, Warm and dry, No rash - Extremities Extremities: No deformity, No tenderness to palpate, Normal ROM s pain - Neuro Neuro: Alert and oriented X 3, 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 Eye Opening: Spontaneous Motor: Obeys Commands Verbal: Oriented GCS Score: 15 Results - Vitals Vitals: Vital Signs - 24 hr 04/30/21 04/30/21 04/30/21 15:55 16:43 17:39 Temperature 36.5 C 36.8 C Heart Rate 88 77 Heart Rate [ 82 Sitting] Heart Rate [ 87 Standing] Heart Rate [ 80 Supine] Respiratory 16 16 Rate Blood Pressure 136/79 H 119/76 Blood Pressure 126/82 H [Sitting] Blood Pressure 129/96 H [Standing] Blood Pressure 118/70 [Supine] O2 Saturation 100 100 04/30/21 18:05 Temperature 36.6 C Heart Rate 66 Heart Rate [ Sitting] Heart Rate [ Standing] Heart Rate [ Supine] Respiratory 14 Rate Blood Pressure 105/63 Blood Pressure [Sitting] Blood Pressure [Standing] Blood Pressure [Supine] O2 Saturation 100 Oxygen O2 Source Room air - EKG (time done) 1657 Rate: Rate (enter#) (75) Rhythm: NSR Thomson: Normal Intervals: Normal NH. No: Prolonged QT QRS: Normal Ischemia: Normal ST segments Compare to prior EKG: Old EKG unavailable Computer interpretation: Agree with computer - Labs Labs: Laboratory Tests 04/30/21 04/30/21 04/30/21 17:02 17:02 17:02 WBC 6.4 RBC 4.22 Hgb 13.2 Hct 38.0 MCV 90.0 MCH 31.3 H MCHC 34.7 RDW 12.6 Plt Count 268 MPV 9.9 Neut # (Auto) 3.2 Lymph # (Auto) 2.5 [place] # (Auto) 0.4 Eos # (Auto) 0.2 Baso # (Auto) 0.1 Absolute Nucleated RBC 0.00 Nucleated RBC % 0.0 D-Dimer Sodium 138 Potassium 3.4 L Chloride 100 L Carbon Dioxide 24 Anion Gap 14.0 H BUN 10 Creatinine 0.6 Estimated GFR (MDRD) 117 Glucose 107 H Calcium 9.4 Total Bilirubin 0.6 AST 18 ALT 13 Alkaline Phosphatase 82 Troponin I High Sens < 2.3 L Total Protein 8.0 Albumin 4.9 Globulin 3.1 Albumin/Globulin Ratio 1.6 Lipase 33 HCG, Quant Urine Color Urine Clarity Urine pH Ur Specific [place] Urine Protein Urine Glucose (UA) Urine Ketones Urine Occult Blood Urine Nitrite Urine Bilirubin Urine Urobilinogen Ur Leukocyte Esterase Ur Microscopic Review Urine Culture Comments 04/30/21 04/30/21 04/30/21 17:02 17:02 18:21 WBC RBC Hgb Hct MCV MCH MCHC RDW Plt Count MPV Neut # (Auto) Lymph # (Auto) [place] # (Auto) Eos # (Auto) Baso # (Auto) Absolute Nucleated RBC Nucleated RBC % D-Dimer 210.8 Sodium Potassium Chloride Carbon Dioxide Anion Gap BUN Creatinine Estimated GFR (MDRD) Glucose Calcium Total Bilirubin AST ALT Alkaline Phosphatase Troponin I High Sens Total Protein Albumin Globulin Albumin/Globulin Ratio Lipase HCG, Quant < 0.60 Urine Color YELLOW Urine Clarity CLEAR Urine pH 5.0 Ur Specific [place] <=1.005 Urine Protein NEGATIVE Urine Glucose (UA) NEGATIVE Urine Ketones NEGATIVE Urine Occult Blood TRACE-INTA Urine Nitrite NEGATIVE Urine Bilirubin NEGATIVE Urine Urobilinogen 0.2 (NORMAL) Ur Leukocyte Esterase NEGATIVE Ur Microscopic Review NOT INDICATED Urine Culture Comments NOT INDICATED - Rads (name of study) CXR Radiology: Final report received (no acute cardiopulmonary abdnormality) PD MEDICAL DECISION MAKING - ED course Complexity details: reviewed results, re-evaluated patient, considered different ial, d/w patient, d/w family ED course: 30-year-old female presents the emergency department for evaluation of a near fainting episode this afternoon while she was preparing lunch for her children. On presentation she appeared fairly nauseated but had an unremarkable neuro and cerebellar exam. Screening EKG, chest x-ray and labs were all unrevealing. Her orthostatic vital signs were noncontributory. She was able to walk the length of the hallway to use the restroom without adverse findings. Patient felt improved here in the ER after receiving a liter of fluids as well as nausea medicine. Patient is PERC negative. D-dimer not elevated. Hcg is negative. At this time she is stable for discharge home. The etiology of her near syncope is not clear though it may have been a vasovagal event. I recommended close follow-up with a primary care provider. Limited prescription for Zofran to help with nausea at home. Emergent return precautions were discussed. Departure - Departure Disposition: 01 Home, Self Care Clinical Impression: Near syncope Condition: Stable Record reviewed to determine appropriate education?: Yes Instructions: ED Near Syncope Vasovagal Prescriptions: Ondansetron Odt [Zofran] 4 mg TL Q6H PRN #10 tablet PRN Reason: Nausea / Vomiting Comments: You are seen in the ER this afternoon for a near fainting episode. As we discussed your chest x-ray, EKG and labs are all essentially normal. When we checked your blood pressure and heart rate and different positions that was also normal. We did give you some IV fluids as well as a nausea medicine which did seem to improve your symptoms. The cause of your near fainting episode is not clear though this may be what we call a vasovagal event. I would recommend that you get plenty of rest and drink lots of fluids at home. I have prescribed some Zofran to help with the nausea. I recommend that you have close follow-up with your primary care doctor to discuss this ED visit. If at any point your symptoms worsen or you do have a fainting episode with loss of consciousness then please return to the ER for a second evaluation.
[2021-04-30 17:22] LABS: ALBUMIN 4.9 g/dL (3.2-5.5); ALBUMIN/GLOBULIN RATIO 1.6 (1.0-2.2); BILIRUBIN,TOTAL 0.6 mg/dL (0.2-1.0); CALCIUM 9.4 mg/dL (8.5-10.3); CREATININE 0.6 mg/dL (0.4-1.0); POTASSIUM 3.4 mmol/L (3.5-5.0)
[2021-04-30] MEDS: SODIUM CHLORIDE 0.9% 1,000 ML IV STA (17:23)
[2021-04-30] MEDS: ONDANSETRON 4 MG/2 ML VIAL IVP STA (17:23)
--- NOTE | 2021-04-30 18:18 | XRAY Report ---
PROCEDURE: Chest 1 View X-Ray INDICATIONS: Chest Pain TECHNIQUE: One view of the chest was acquired. COMPARISON: None. FINDINGS: Surgical changes and devices: None. Lungs and pleura: No pleural effusions or pneumothorax. Lungs are clear. Mediastinum: Mediastinal contours appear normal. Heart size is normal. Bones and chest wall: No suspicious bony lesions. Overlying soft tissues appear unremarkable. IMPRESSION: Chest without acute cardiopulmonary abnormalities. Reviewed by: Nehemiah Charles MD on 04/30/2021 6:17 PM PDT Approved by: Nehemiah Charles MD on 04/30/2021 6:17 PM PDT Station ID: [id number]
[2021-04-30 18:33] LABS: BILIRUBIN,URINE NEGATIVE (NEGATIVE); GLUCOSE, URINE (UA) NEGATIVE (NEGATIVE); KETONES,URINE (UA) NEGATIVE (NEGATIVE); LEUKOCYTE ESTERASE, URINE NEGATIVE (NEGATIVE); NITRITE,URINE NEGATIVE (NEGATIVE); OCCULT BLOOD,URINE TRACE-INTA (NEGATIVE); PROTEIN,URINE NEGATIVE (NEGATIVE); UROBILINOGEN,URINE 0.2 (NORMAL) E.U./dL (NORMAL)
[2021-04-30 18:37] LABS: CLARITY,URINE CLEAR (CLEAR)
[2021-04-30 19:16] VITALS: BP 105/63
== END 2021-04-30 19:07 | disposition home or self-care (01) ==
LOC: ED 15:51
DX: R55 Syncope and collapse (principal); R11.0 Nausea; R00.2 Palpitations
CPT/HCPCS: 36415; 80053; 81001; 81003; 83690; 84484; 84702; 85025; 85379; 87086; 93005; 96374; 99284

== ENCOUNTER 2023-04-24 16:58 | Outpatient (CLI) | payer OTHER | END 2023-04-24 16:59 | disposition EMS.NT | LOC: EMS 16:58 | DX: R55 Syncope and collapse (principal); R51.9 Headache, unspecified; F41.9 Anxiety disorder, unspecified ==

== ENCOUNTER 2024-07-12 13:18 | Outpatient (CLI) | payer OTHER ==
--- NOTE | 2024-07-12 19:49 | XRAY Report ---
PROCEDURE: Cervical Spine w/Flex/Ext 6+V INDICATIONS: CERVICAL RADICULOPATHY TECHNIQUE: 7 views of the cervical spine were acquired. COMPARISON: None. FINDINGS: Bones: Vertebral body height and alignment is maintained. Normal bone mineralization and cranioverte bral relationships. No fracture or traumatic malalignment. Flexion and extension imaging shows no evidence of instability. Oblique images demonstrate osseous patency of the neural foramina without stenosis. Soft tissues: Prevertebral soft tissues are normal in thickness. IMPRESSION: Unremarkable cervical spine radiographs without evidence of instability Reviewed by: Otto Alcaraz MD on 07/12/2024 6:48 PM [facility] Approved by: Otto Alcaraz MD on 07/12/2024 6:48 PM AKDT Station ID: [id number]
== END 2024-07-12 13:19 | disposition home or self-care (01) ==
LOC: DI.N 13:18
PROVIDERS: ATTEND Nurse Practitioner Family
DX: M54.12 Radiculopathy, cervical region (principal)